=== PATIENT | male | born 1985 | race Caucasian/White ===

== ENCOUNTER 2021-04-18 19:41 | Inpatient (IN) | payer OTHER, SELFPAY ==
[2021-04-18] MEDS ORDERED: Boostrix 0.5 ML (Tdap) VIAL ONE (19:56)
[2021-04-18] MEDS ORDERED: Ondansetron PF 4 MG/2 ML Vial ONE (20:13)
[2021-04-18] MEDS ORDERED: Morphine 4 MG/ML VIAL ONE (20:13)
[2021-04-18] MEDS ORDERED: HYDROcodone/Acetaminophen 10/325 mg Tablet PO PRN (22:38)
[2021-04-18] MEDS ORDERED: Ondansetron PF 4 MG/2 ML Vial IVP PRN (22:38)
[2021-04-18] MEDS ORDERED: Acetaminophen 650 MG Suppository PR PRN (22:38)
[2021-04-18] MEDS ORDERED: Dextrose 5% in Water 1,000 ML IV PRN (22:38)
[2021-04-18] MEDS ORDERED: hydrALAZINE 20 MG/ML VIAL SLOW IVP PRN (22:38)
[2021-04-18] MEDS ORDERED: Acetaminophen 325 MG TAB PO PRN (22:38)
[2021-04-18] MEDS ORDERED: Dextrose 50% Abboject 50 ML SYRINGE SLOW IVP PRN (22:38)
[2021-04-18] MEDS ORDERED: Promethazine HCl 25 MG/ML VIAL IM PRN (22:38)
[2021-04-18] MEDS ORDERED: Morphine 4 MG/ML VIAL SLOW IVP PRN (22:38)
[2021-04-18] MEDS ORDERED: Piperacillin/Tazobactam 3.375 GM in Sodium Chloride 0.9% 100 ML IVPB SCH (23:59)
[2021-04-19] MEDS ORDERED: ALPRAZolam 0.25 MG TAB ONE ×2 (00:31→00:40)
[2021-04-19] MEDS ORDERED: Piperacillin/Tazobactam 3.375 GM VIAL ONE (00:31)
[2021-04-19] MEDS ORDERED: D5 1/2 NS w/20 mEq KCL 1,000 ML ONE (00:31)
[2021-04-19] MEDS ORDERED: Morphine 4 MG/ML VIAL ONE (01:14)
[2021-04-19 02:12] VITALS: BMI 28.7
[2021-04-19] MEDS: D5 1/2 NS w/20 mEq KCL 1,000 ML IV SCH ×3 (02:39→15:25)
[2021-04-19] MEDS: Piperacillin/Tazobactam 3.375 GM in Sodium Chloride 0.9% 100 ML IVPB SCH ×3 (05:05→20:22)
[2021-04-19] MEDS: ALPRAZolam 0.5 MG TAB PO SCH ×3 (08:36→20:23)
[2021-04-19] MEDS: Famotidine 20 MG TAB PO SCH ×2 (08:36→20:23)
[2021-04-19] MEDS: Famotidine/PF 20 mg/2ml Vial SLOW IVP SCH ×2 (08:37→20:24)
[2021-04-19] MEDS: Morphine 4 MG/ML VIAL SLOW IVP PRN ×4 (09:10→22:51)
[2021-04-19] MEDS: Enoxaparin Sodium 40 MG/0.4 ML SYRINGE SC SCH (09:11)
[2021-04-19] MEDS ORDERED: Sodium Chloride 0.9% 1,000 ML IV SCH (11:00)
[2021-04-19 13:39] LABS: #Basophils 0.1 thou/uL (0.0-0.2); #Eosinphils 0.2 thou/uL (0.0-0.7); #Lymphocytes 2.6 thou/uL (1.20-3.40); #Monocytes 0.6 thou/uL (0.11-0.59); #Neutrophils 4.6 thou/uL (1.40-6.50); %Basophils 0.6 % (0.0-1.0); %Eosinophils 3.1 % (0.0-10.0); %Lymphocytes 32.3 % (21.0-51.0); %Monocytes 7.1 % (0.0-10.0); %Neutrophils 56.8 % (42.0-75.0); Hemoglobin 11.8 g/dL (14.0-18.0); Mean Corpuscular Hemoglobin 29.4 pg (27.0-31.0); Mean Corpuscular Volume 89.2 fL (78.0-98.0); Mean Platelet Volume 7.4 fL (7.4-10.4); Platelet Count 321 thou/uL (130-400); RBC Distribution Width 12.1 % (11.5-14.5); Red Blood Cell (RBC) Count 4.01 mill/uL (4.70-6.10); White Blood Cell (WBC) Count 8.1 thou/uL (4.8-10.8)
[2021-04-19 14:26] LABS: Anion Gap 10 mmol/L (10-20); BUN (Urea Nitrogen) 8 mg/dL (8.9-20.6); Calc. Creatinine Clearance 120 mL/min (70-130); Calcium 8.5 mg/dL (7.8-10.44); Carbon Dioxide 24 mmol/L (22-29); Chloride 107 mmol/L (98-107); Glucose 107 mg/dL (70-105); Potassium 3.7 mmol/L (3.5-5.1); Sodium 137 mmol/L (136-145)
[2021-04-19] MEDS ORDERED: Iopamidol-370 76% 500 ML 1 ML ONE (15:55)
[2021-04-19] MEDS: Nicotine 21 MG PATCH TOP SCH (17:35)
[2021-04-19] MEDS ORDERED: Melatonin 3 MG TAB PO PRN (19:10)
[2021-04-19] MEDS ORDERED: GUAIFENESIN SF SOLN 200 MG/10 ML UDCUP PO PRN (19:10)
[2021-04-19] MEDS ORDERED: Azithromycin 500 MG in Sodium Chloride 0.9% 250 ML 250 ML IVPB SCH (21:00)
[2021-04-20] MEDS: D5 1/2 NS w/20 mEq KCL 1,000 ML IV SCH ×2 (02:02→14:56)
[2021-04-20] MEDS: Morphine 4 MG/ML VIAL SLOW IVP PRN ×3 (02:12→10:15)
[2021-04-20] MEDS: Piperacillin/Tazobactam 3.375 GM in Sodium Chloride 0.9% 100 ML IVPB SCH (03:31)
[2021-04-20 08:06] VITALS: BP 125/76; TEMP 98.7
[2021-04-20] MEDS: ALPRAZolam 0.5 MG TAB PO SCH ×2 (08:42→14:35)
[2021-04-20] MEDS: Famotidine 20 MG TAB PO SCH (08:42)
[2021-04-20] MEDS: Enoxaparin Sodium 40 MG/0.4 ML SYRINGE SC SCH (08:42)
[2021-04-20] MEDS: Famotidine/PF 20 mg/2ml Vial SLOW IVP SCH (08:45)
[2021-04-20] MEDS ORDERED: Ibuprofen 800 MG TAB PO PRN (10:23)
[2021-04-20] MEDS ORDERED: Gabapentin 300 MG CAP PO PRN (10:24)
[2021-04-20] MEDS ORDERED: Ibuprofen 200 MG TAB PO PRN (11:00)
[2021-04-20 11:41] LABS: Anion Gap 13 mmol/L (10-20); BUN (Urea Nitrogen) 5 mg/dL (8.9-20.6); Calc. Creatinine Clearance 124 mL/min (70-130); Calcium 8.9 mg/dL (7.8-10.44); Carbon Dioxide 26 mmol/L (22-29); Chloride 105 mmol/L (98-107); Glucose 112 mg/dL (70-105); Sodium 140 mmol/L (136-145)
[2021-04-20] MEDS: Nicotine 21 MG PATCH TOP SCH (14:35)
[2021-04-21] MEDS ORDERED: Azithromycin 250 MG TAB PO SCH (21:00)
[2021-04-22] MEDS ORDERED: FLU VACC QS2021-22(6MOS UP)/PF 60 MCG/0.5 ML SYRINGE IM ONE (09:00)
== END 2021-04-20 15:00 | disposition home or self-care (01) | DRG 388 ==
LOC: ERS 19:41 → SJJU 22:38
PROVIDERS: ADMIT Surgery; ATTEND Surgery
DX: K56.609 Unspecified intestinal obstruction, unspecified as to partial versus complete obstruction (principal); J18.9 Pneumonia, unspecified organism; F41.9 Anxiety disorder, unspecified; Z20.822 Contact with and (suspected) exposure to COVID-19
CPT/HCPCS: 71045; 74177; 80048; 90715; J0456; J1650; J2270; J2405; J2543; J3480; J3490; J7050; Q9967